=== PATIENT | male | born 1965 | race African-American/Black ===

== ENCOUNTER 2019-04-29 13:53 | Inpatient (IN) ==
[2019-04-29] MEDS ORDERED: ONDANSETRON 4 MG/2 ML VIAL IV STA (14:33)
[2019-04-29] MEDS ORDERED: cefTRIAXone 1,000 MG in SODIUM CHLORIDE 0.9% 100 ML IV STA (14:33)
[2019-04-29] MEDS ORDERED: methylPREDNISolone SOD SUC 125 MG/2 ML VIAL IV STA (14:33)
[2019-04-29] MEDS ORDERED: PIPERACILLIN/TAZOBACTAM 3,375 MG in SODIUM CHLORIDE 0.9% 100 ML IV STA (14:33)
[2019-04-29 14:34] LABS: Basophils % 0.6 % (0.0-0.8); Hematocrit 44.5 VOL% (42.0-52.0); Hemoglobin 14.6 GM/DL (14.0-18.0); Immature Granulocytes % 0.3 %; Immature Granulocytes Absolute 0.01 #; Lymphocytes # 1.1 10*3/uL (1.4-4.0); Lymphocytes % 32.2 % (21.2-54.2); Mean Corpuscular HGB Conc 32.8 GM/DL (32-36); Mean Corpuscular Volume 82.7 FL (87-102); Mean Platelet Volume 9.7 FL (9.6-12.0); Monocytes % 10.2 % (1.7-12.7); Neutrophils % 56.7 % (38.7-73.9); Platelet Count 157 T/CUMM (130-400); Red Blood Count 5.38 MC/CUMM (3.8-5.5); Red Cell Distribution Width 15.4 % (9.3-17.3); White Blood Count 3.4 T/CUMM (4-12)
[2019-04-29 14:46] LABS: INR 0.9; PT Patient Result 10.3 SECS (9.6-12.2)
[2019-04-29] MEDS ORDERED: ALBUTEROL 2.5 MG/3 ML NEB RESP TX SCH (15:00)
[2019-04-29 15:04] LABS: Lymphocytes 32 % (20-55); Platelet Estimate Adequate; Segmented Neutrophils 58 % (50-85); Total Cells Counted 100
[2019-04-29 15:05] LABS: Anisocytosis Slight; Ovalocytes Slight
[2019-04-29 15:06] LABS: Alanine Aminotransferase 82 U/L (16-61); Albumin 3.2 G/DL (3.4-5.0); Alkaline Phosphatase 54 U/L (45-117); Aspartate Amino Transferase 395 U/L (0-37); Bilirubin,Total < 0.39 MG/DL (0.2-1.0); Blood Urea Nitrogen 14 MG/DL (7-18); Calcium 8.8 MG/DL (8.5-10.1); Estimated Glom Filtration Rate 92 ML/MIN; Glucose 78 MG/DL (74-106); Osmolality,Calculated 263.5 MOS/KG (273-304); Total Protein 7.8 G/DL (6.4-8.3)
[2019-04-29] MEDS ORDERED: ACETAMINOPHEN 500 MG TABLET ONE (15:30)
[2019-04-29] MEDS ORDERED: ONDANSETRON 4 MG/2 ML VIAL IV PRN (15:41)
[2019-04-29] MEDS ORDERED: GLUCAGON 1 MG VIAL IM PRN (15:41)
[2019-04-29] MEDS ORDERED: DEXTROSE 50% 25 GM/50 ML VIAL IV PRN (15:41)
[2019-04-29] MEDS ORDERED: ACETAMINOPHEN 500 MG TABLET PO STA (15:47)
[2019-04-29] MEDS ORDERED: NICOTINE 7 MG/24 HR PATCH TRANSDERM PRN (15:58)
[2019-04-29] MEDS: INSULIN REGULAR 100 UNIT/ML SUBCUT SCH ×2 (18:07→21:58)
[2019-04-29] MEDS: ENOXAPARIN 40 MG/0.4 ML SYRINGE SUBCUT SCH (18:08)
[2019-04-29] MEDS: AZITHROMYCIN INJ 500 MG in SODIUM CHLORIDE 0.9% 250 ML IV SCH (18:12)
[2019-04-29] MEDS: ALBUTEROL/IPRATROPIUM 3 ML NEB RESP TX SCH (19:24)
[2019-04-29] MEDS: DIVALPROEX ER 500 MG TABLET PO SCH (21:58)
[2019-04-29] MEDS: BENZTROPINE 1 MG TABLET PO SCH (21:58)
[2019-04-30] MEDS: ALBUTEROL/IPRATROPIUM 3 ML NEB RESP TX SCH ×4 (00:01→18:48)
[2019-04-30 05:29] LABS: Hematocrit 42.8 VOL% (42.0-52.0); Hemoglobin 13.7 GM/DL (14.0-18.0); Immature Granulocytes % 0.3 %; Immature Granulocytes Absolute 0.01 #; Lymphocytes # 0.8 10*3/uL (1.4-4.0); Lymphocytes % 23.2 % (21.2-54.2); Mean Corpuscular Volume 83.8 FL (87-102); Mean Platelet Volume 10.8 FL (9.6-12.0); Monocytes % 7.1 % (1.7-12.7); Neutrophils % 69.4 % (38.7-73.9); Platelet Count 158 T/CUMM (130-400); Red Blood Count 5.11 MC/CUMM (3.8-5.5); Red Cell Distribution Width 15.5 % (9.3-17.3); White Blood Count 3.2 T/CUMM (4-12)
[2019-04-30 05:51] LABS: Band Neutrophils 14 % (0-10); Hypochromasia 1+; Lymphocytes 25 % (20-55); Metamyelocytes 2 %; Ovalocytes Slight; Segmented Neutrophils 52 % (50-85); Total Cells Counted 100
[2019-04-30 05:52] LABS: Calcium 8.5 MG/DL (8.5-10.1); Microcytosis Slight; Platelet Estimate Adequate
[2019-04-30 06:08] LABS: Alanine Aminotransferase 83 U/L (16-61); Albumin 3.1 G/DL (3.4-5.0); Alkaline Phosphatase 51 U/L (45-117); Aspartate Amino Transferase 365 U/L (0-37); Bilirubin,Direct < 0.100 MG/DL (0.0-0.20); Bilirubin,Indirect 0.3 MG/DL (0.0-1.0); Bilirubin,Total < 0.39 MG/DL (0.2-1.0); Total Protein 7.1 G/DL (6.4-8.3)
[2019-04-30] MEDS: CITALOPRAM 20 MG TABLET PO SCH (08:21)
[2019-04-30] MEDS: ATORVASTATIN 20 MG TABLET PO SCH (08:21)
[2019-04-30] MEDS: lisinopriL 20 MG TABLET PO SCH (08:21)
[2019-04-30] MEDS: amLODIPine 5 MG TABLET PO SCH (08:21)
[2019-04-30] MEDS: BENZTROPINE 1 MG TABLET PO SCH ×2 (08:21→21:01)
[2019-04-30] MEDS: INSULIN REGULAR 100 UNIT/ML SUBCUT SCH ×4 (08:22→20:42)
[2019-04-30] MEDS: PANTOPRAZOLE 40 MG TABLET PO SCH (08:22)
[2019-04-30] MEDS ORDERED: PANTOPRAZOLE 40 MG TABLET PO SCH (09:00)
[2019-04-30] MEDS ORDERED: HALOPERIDOL DECANOATE 100 MG IM SCH (09:00)
[2019-04-30 11:03] LABS: Hepatitis B Surface Ag Quant < 0.10 Index; Hepatitis B Surface Ag Result Negative (Negative); Hepatitis C Virus Ab Quant 0.15 Index; Hepatitis C Virus Ab Result Negative (Negative)
[2019-04-30 12:48] LABS: Apearance,Urine CLEAR (Clear); Bacteria,Urine Occasional /HPF (Few); Bilirubin,Urine Negative (Negative); Blood, Urine Negative (Negative); Glucose,Urine (UA) 50 mg/dL (Negative); Granular Casts,Urine 3 /LPF (0-1); Hyaline Casts,Urine 4 /LPF (0-3); Ketones,Urine Negative (Negative); Mucus,Urine Occasional /LPF (Occasional); Nitrite,Urine Negative (Negative); Protein,Urine Negative; RBC,Urine 2 /HPF (0-4); Squamous Epithelial Cell,Urine Occasional /HPF (0-10); Urine Color Yellow (Yellow); Urine Specific Gravity 1.018 (1.001-1.035); Urine Urobilinogen < 2.0 EU/DL (0.2-1.0); WBC,Urine <1 /HPF (0-6)
[2019-04-30] MEDS: ENOXAPARIN 40 MG/0.4 ML SYRINGE SUBCUT SCH (16:36)
[2019-04-30] MEDS: AZITHROMYCIN INJ 500 MG in SODIUM CHLORIDE 0.9% 250 ML IV SCH (16:37)
[2019-04-30] MEDS: cefTRIAXone 1,000 MG in SYRINGE 1 EACH IV SCH (16:38)
[2019-04-30] MEDS: DIVALPROEX ER 500 MG TABLET PO SCH (21:01)
[2019-05-01] MEDS: ALBUTEROL/IPRATROPIUM 3 ML NEB RESP TX SCH ×4 (01:29→19:34)
[2019-05-01] MEDS: guaiFENesin/DM ER 600-30 MG TABLET PO PRN ×2 (02:21→20:09)
[2019-05-01] MEDS ORDERED: methylPREDNISolone SOD SUC 125 MG/2 ML VIAL IV ONE (04:16)
[2019-05-01] MEDS: ACETAMINOPHEN 325 MG TABLET PO PRN ×2 (04:26→20:08)
[2019-05-01] MEDS: guaiFENesin 200 MG/10 ML UDCUP PO PRN ×2 (04:35→20:09)
[2019-05-01] MEDS: CITALOPRAM 20 MG TABLET PO SCH (08:44)
[2019-05-01] MEDS: ATORVASTATIN 20 MG TABLET PO SCH (08:44)
[2019-05-01] MEDS: amLODIPine 5 MG TABLET PO SCH (08:44)
[2019-05-01] MEDS: lisinopriL 20 MG TABLET PO SCH (08:44)
[2019-05-01] MEDS: BENZTROPINE 1 MG TABLET PO SCH ×2 (08:44→20:09)
[2019-05-01] MEDS: PANTOPRAZOLE 40 MG TABLET PO SCH (08:44)
[2019-05-01] MEDS: INSULIN REGULAR 100 UNIT/ML SUBCUT SCH ×4 (09:02→22:50)
[2019-05-01] MEDS: ENOXAPARIN 40 MG/0.4 ML SYRINGE SUBCUT SCH (16:25)
[2019-05-01] MEDS: cefTRIAXone 1,000 MG in SYRINGE 1 EACH IV SCH (16:26)
[2019-05-01] MEDS: AZITHROMYCIN INJ 500 MG in SODIUM CHLORIDE 0.9% 250 ML IV SCH (16:26)
[2019-05-01] MEDS: DIVALPROEX ER 500 MG TABLET PO SCH (20:08)
[2019-05-02] MEDS: ALBUTEROL/IPRATROPIUM 3 ML NEB RESP TX SCH ×4 (00:10→19:25)
[2019-05-02] MEDS: ACETAMINOPHEN 325 MG TABLET PO PRN ×2 (05:21→11:27)
[2019-05-02] MEDS: guaiFENesin 200 MG/10 ML UDCUP PO PRN (05:22)
[2019-05-02 05:52] LABS: Hematocrit 37.8 VOL% (42.0-52.0); Hemoglobin 12.5 GM/DL (14.0-18.0); Immature Granulocytes % 0.7 %; Immature Granulocytes Absolute 0.04 #; Lymphocytes # 1.5 10*3/uL (1.4-4.0); Lymphocytes % 24.5 % (21.2-54.2); Mean Corpuscular HGB Conc 33.1 GM/DL (32-36); Mean Corpuscular Volume 82.4 FL (87-102); Mean Platelet Volume 10.5 FL (9.6-12.0); Monocytes % 5.2 % (1.7-12.7); Neutrophils % 69.6 % (38.7-73.9); Platelet Count 137 T/CUMM (130-400); Red Blood Count 4.59 MC/CUMM (3.8-5.5); Red Cell Distribution Width 15.8 % (9.3-17.3); White Blood Count 5.9 T/CUMM (4-12)
[2019-05-02 06:12] LABS: Band Neutrophils 2 % (0-10); Hypochromasia 1+; Lymphocytes 25 % (20-55); Ovalocytes Slight; Platelet Estimate Normal; Segmented Neutrophils 66 % (50-85); Total Cells Counted 100
[2019-05-02 06:13] LABS: Microcytosis Slight
[2019-05-02] MEDS: PANTOPRAZOLE 40 MG TABLET PO SCH (08:23)
[2019-05-02] MEDS: CITALOPRAM 20 MG TABLET PO SCH (08:23)
[2019-05-02] MEDS: amLODIPine 5 MG TABLET PO SCH (08:23)
[2019-05-02] MEDS: lisinopriL 20 MG TABLET PO SCH (08:23)
[2019-05-02] MEDS: ATORVASTATIN 20 MG TABLET PO SCH (08:23)
[2019-05-02] MEDS: BENZTROPINE 1 MG TABLET PO SCH ×2 (08:23→21:28)
[2019-05-02] MEDS: INSULIN REGULAR 100 UNIT/ML SUBCUT SCH ×4 (08:50→21:29)
[2019-05-02] MEDS ORDERED: ALBUTEROL 2.5 MG/3 ML NEB RESP TX PRN (13:02)
[2019-05-02] MEDS ORDERED: HALOPERIDOL DECANOATE 50 MG/1 ML VIAL IM ONE (13:30)
[2019-05-02] MEDS: AZITHROMYCIN INJ 500 MG in SODIUM CHLORIDE 0.9% 250 ML IV SCH (15:05)
[2019-05-02] MEDS: ENOXAPARIN 40 MG/0.4 ML SYRINGE SUBCUT SCH (15:06)
[2019-05-02] MEDS: cefTRIAXone 1,000 MG in SYRINGE 1 EACH IV SCH (15:06)
[2019-05-02] MEDS ORDERED: methylPREDNISolone SOD SUC 125 MG/2 ML VIAL IV ONE (20:32)
[2019-05-02] MEDS ORDERED: methylPREDNISolone SOD SUC 125 MG/2 ML VIAL ONE (20:33)
[2019-05-02] MEDS ORDERED: FUROSEMIDE 40 MG/4 ML VIAL IV ONE (20:33)
[2019-05-02] MEDS ORDERED: ACETAMINOPHEN 500 MG TABLET PO ONE (20:35)
[2019-05-02 20:40] LABS: ABG Base Excess 2.4 MMOL/L (-2.5-2.5); ABG HCO3 26.2 MMOL/L (20-26); ABG Oxygen Saturation 84.1 % (95-100); ABG PCO2 35.5 MM HG (35-48); ABG PH 7.469 (7.35-7.45); ABG PO2 49.5 MM HG (80-95); ABG TCO2 22.5 MMOL/L (23-27); Allen Test Positive; Pt O2 Delivery Device Venturi Mask
[2019-05-02 20:53] LABS: Basophils % 0.3 % (0.0-0.8); Hematocrit 40.1 VOL% (42.0-52.0); Hemoglobin 12.9 GM/DL (14.0-18.0); Immature Granulocytes % 1.4 %; Immature Granulocytes Absolute 0.08 #; Lymphocytes # 2.2 10*3/uL (1.4-4.0); Mean Corpuscular HGB Conc 32.2 GM/DL (32-36); Mean Corpuscular Volume 83.2 FL (87-102); Mean Platelet Volume 10.6 FL (9.6-12.0); Monocytes % 5.9 % (1.7-12.7); Neutrophils % 55.4 % (38.7-73.9); Platelet Count 154 T/CUMM (130-400); Red Blood Count 4.82 MC/CUMM (3.8-5.5); Red Cell Distribution Width 15.7 % (9.3-17.3); White Blood Count 5.9 T/CUMM (4-12)
[2019-05-02] MEDS: DIVALPROEX ER 500 MG TABLET PO SCH (21:27)
[2019-05-02 21:30] LABS: Band Neutrophils 2 % (0-10); Lymphocytes 33 % (20-55); Platelet Estimate Normal; Segmented Neutrophils 58 % (50-85); Total Cells Counted 100
[2019-05-02 23:41] LABS: Pt O2 Delivery Device Other
[2019-05-02 23:42] LABS: ABG Base Excess 1.6 MMOL/L (-2.5-2.5); ABG HCO3 25.2 MMOL/L (20-26); ABG Oxygen Saturation 93.4 % (95-100); ABG PCO2 36.7 MM HG (35-48); ABG PH 7.455 (7.35-7.45); ABG PO2 69.2 MM HG (80-95); ABG TCO2 26.4 MMOL/L (23-27)
[2019-05-03] MEDS: ALBUTEROL/IPRATROPIUM 3 ML NEB RESP TX SCH ×4 (00:11→19:32)
[2019-05-03 03:37] LABS: Pt O2 Delivery Device Other
[2019-05-03 03:38] LABS: ABG Base Excess 2.3 MMOL/L (-2.5-2.5); ABG HCO3 26.3 MMOL/L (20-26); ABG Oxygen Saturation 93.8 % (95-100); ABG PCO2 39.2 MM HG (35-48); ABG PH 7.437 (7.35-7.45); ABG PO2 70.5 MM HG (80-95); ABG TCO2 22.8 MMOL/L (23-27)
[2019-05-03 04:22] LABS: Basophils % 0.7 % (0.0-0.8); Hemoglobin 13.2 GM/DL (14.0-18.0); Immature Granulocytes % 1.3 %; Immature Granulocytes Absolute 0.08 #; Lymphocytes # 1.7 10*3/uL (1.4-4.0); Lymphocytes % 27.9 % (21.2-54.2); Mean Corpuscular HGB Conc 32.2 GM/DL (32-36); Mean Corpuscular Volume 82.7 FL (87-102); Mean Platelet Volume 10.7 FL (9.6-12.0); Neutrophils % 64.1 % (38.7-73.9); Platelet Count 169 T/CUMM (130-400); Red Blood Count 4.96 MC/CUMM (3.8-5.5); Red Cell Distribution Width 15.8 % (9.3-17.3); White Blood Count 6.1 T/CUMM (4-12)
[2019-05-03 04:34] LABS: Albumin 2.8 G/DL (3.4-5.0); Bilirubin,Total 0.4 MG/DL (0.2-1.0); Calcium 8.6 MG/DL (8.5-10.1); Osmolality,Calculated 275.8 MOS/KG (273-304); Total Protein 7.8 G/DL (6.4-8.3)
[2019-05-03 04:52] LABS: Band Neutrophils 1 % (0-10); Lymphocytes 27 % (20-55); Myelocytes 1 %; Segmented Neutrophils 69 % (50-85); Total Cells Counted 100
[2019-05-03 04:53] LABS: Anisocytosis 1+; Platelet Estimate Normal; Target Cells Few
[2019-05-03 05:19] LABS: ABG Base Excess 2.1 MMOL/L (-2.5-2.5); ABG HCO3 26.2 MMOL/L (20-26); ABG PCO2 39.2 MM HG (35-48); ABG PH 7.435 (7.35-7.45); ABG PO2 92.9 MM HG (80-95); ABG TCO2 22.7 MMOL/L (23-27); Pt O2 Delivery Device Other
[2019-05-03] MEDS: INSULIN REGULAR 100 UNIT/ML SUBCUT SCH ×4 (07:13→21:15)
[2019-05-03] MEDS: amLODIPine 5 MG TABLET PO SCH (08:09)
[2019-05-03] MEDS: lisinopriL 20 MG TABLET PO SCH (08:09)
[2019-05-03] MEDS: CITALOPRAM 20 MG TABLET PO SCH (08:10)
[2019-05-03] MEDS: BENZTROPINE 1 MG TABLET PO SCH ×2 (08:10→21:38)
[2019-05-03] MEDS: PANTOPRAZOLE 40 MG TABLET PO SCH (08:10)
[2019-05-03] MEDS: ATORVASTATIN 20 MG TABLET PO SCH (08:10)
[2019-05-03 09:41] LABS: ABG HCO3 27.7 MMOL/L (20-26); ABG Oxygen Saturation 86.5 % (95-100); ABG PCO2 35.9 MM HG (35-48); ABG PH 7.488 (7.35-7.45); ABG PO2 50.9 MM HG (80-95); ABG TCO2 23.4 MMOL/L (23-27); Pt O2 Delivery Device Other
[2019-05-03] MEDS: ENOXAPARIN 40 MG/0.4 ML SYRINGE SUBCUT SCH (16:15)
[2019-05-03] MEDS: AZITHROMYCIN INJ 500 MG in SODIUM CHLORIDE 0.9% 250 ML IV SCH (16:15)
[2019-05-03] MEDS: cefTRIAXone 1,000 MG in SYRINGE 1 EACH IV SCH (16:16)
[2019-05-03] MEDS ORDERED: diphenhydrAMINE 50 MG/1 ML VIAL IV PRN (18:49)
[2019-05-03] MEDS: LORazepam 2 MG/1 ML VIAL IV PRN (19:07)
[2019-05-03] MEDS ORDERED: ETOMIDATE 20 MG/10 ML VIAL IV ONE ×2 (20:08→20:12)
[2019-05-03] MEDS ORDERED: SUCCINYLCHOLINE 200 MG/10 ML VIAL ONE (20:09)
[2019-05-03] MEDS ORDERED: SUCCINYLCHOLINE 200 MG/10 ML VIAL IV ONE (20:12)
[2019-05-03] MEDS ORDERED: VECURONIUM 10 MG VIAL IV PRN (20:35)
[2019-05-03 21:11] LABS: ABG HCO3 26.2 MMOL/L (20-26); ABG Oxygen Saturation 99.2 % (95-100); ABG PCO2 57.5 MM HG (35-48); ABG PH 7.321 (7.35-7.45); ABG TCO2 26.2 MMOL/L (23-27); Allen Test Positive; Pt O2 Delivery Device Ventilator
[2019-05-03] MEDS: DIVALPROEX ER 500 MG TABLET PO SCH (21:39)
[2019-05-03] MEDS: methylPREDNISolone SOD SUC 40 MG/1 ML VIAL IV SCH (21:39)
[2019-05-03] MEDS: fentaNYL INJ 1,250 MCG in SODIUM CHLORIDE 0.9% 225 ML IV PRN (21:40)
[2019-05-03] MEDS: METOPROLOL TARTRATE 25 MG TABLET PO SCH (21:45)
[2019-05-04] MEDS: ALBUTEROL/IPRATROPIUM 3 ML NEB RESP TX SCH ×4 (00:11→19:26)
[2019-05-04] MEDS: BUDESONIDE 0.5 MG/2 ML NEB RESP TX SCH ×3 (00:56→19:26)
[2019-05-04 03:44] LABS: ABG Base Excess 2.1 MMOL/L (-2.5-2.5); ABG HCO3 26.2 MMOL/L (20-26); ABG Oxygen Saturation 98.6 % (95-100); ABG PCO2 40.3 MM HG (35-48); ABG PH 7.427 (7.35-7.45); ABG TCO2 23.3 MMOL/L (23-27); Allen Test Positive; Pt O2 Delivery Device Ventilator
[2019-05-04 05:13] LABS: Basophils % 0.2 % (0.0-0.8); Hemoglobin 11.8 GM/DL (14.0-18.0); Immature Granulocytes % 1.3 %; Immature Granulocytes Absolute 0.12 #; Lymphocytes # 1.7 10*3/uL (1.4-4.0); Lymphocytes % 19.1 % (21.2-54.2); Mean Corpuscular HGB Conc 31.9 GM/DL (32-36); Mean Corpuscular Volume 83.7 FL (87-102); Monocytes % 6.1 % (1.7-12.7); Neutrophils % 73.3 % (38.7-73.9); Platelet Count 232 T/CUMM (130-400); Red Blood Count 4.42 MC/CUMM (3.8-5.5); Red Cell Distribution Width 15.3 % (9.3-17.3); White Blood Count 9.1 T/CUMM (4-12)
[2019-05-04 05:39] LABS: Hypochromasia Slight; Platelet Estimate Adequate
[2019-05-04 05:40] LABS: Calcium 8.1 MG/DL (8.5-10.1)
[2019-05-04] MEDS ORDERED: LORazepam 2 MG/1 ML VIAL ONE (07:18)
[2019-05-04] MEDS: methylPREDNISolone SOD SUC 40 MG/1 ML VIAL IV SCH ×2 (08:20→20:40)
[2019-05-04] MEDS: INSULIN REGULAR 100 UNIT/ML SUBCUT SCH ×4 (08:21→20:41)
[2019-05-04] MEDS: ATORVASTATIN 20 MG TABLET PO SCH (09:24)
[2019-05-04] MEDS: sitaGLIPtin 100 MG TABLET PO SCH (09:24)
[2019-05-04] MEDS: BENZTROPINE 1 MG TABLET PO SCH ×2 (09:24→20:41)
[2019-05-04] MEDS: amLODIPine 5 MG TABLET PO SCH (09:24)
[2019-05-04] MEDS: lisinopriL 20 MG TABLET PO SCH (09:24)
[2019-05-04] MEDS: CITALOPRAM 20 MG TABLET PO SCH (09:25)
[2019-05-04] MEDS: NICOTINE 14 MG/24 HR PATCH TRANSDERM SCH (09:25)
[2019-05-04] MEDS: METOPROLOL TARTRATE 25 MG TABLET PO SCH ×2 (09:25→20:41)
[2019-05-04] MEDS: OMEPRAZOLE ODT 20 MG TABLET PO SCH (09:31)
[2019-05-04] MEDS: PANTOPRAZOLE 40 MG TABLET PO SCH (10:25)
[2019-05-04] MEDS: LEVOFLOXACIN INJ 750 MG in PREMIX 1 EACH IV SCH (10:31)
[2019-05-04 11:11] LABS: Troponin I < 0.015 NG/ML (0.00-0.045)
[2019-05-04] MEDS: MEROPENEM 500 MG in SODIUM CHLORIDE 0.9% 100 ML IV SCH ×2 (12:09→17:18)
[2019-05-04] MEDS: fentaNYL INJ 1,250 MCG in SODIUM CHLORIDE 0.9% 225 ML IV PRN (12:41)
[2019-05-04] MEDS: ENOXAPARIN 40 MG/0.4 ML SYRINGE SUBCUT SCH (16:15)
[2019-05-04] MEDS: DIVALPROEX ER 500 MG TABLET PO SCH (20:41)
[2019-05-04] MEDS: VALPROIC ACID 250 MG/5 ML UDCUP NG SCH (22:01)
[2019-05-05] MEDS: ALBUTEROL/IPRATROPIUM 3 ML NEB RESP TX SCH ×4 (00:10→20:10)
[2019-05-05] MEDS: MEROPENEM 500 MG in SODIUM CHLORIDE 0.9% 100 ML IV SCH ×4 (00:14→16:46)
[2019-05-05] MEDS: VALPROIC ACID 250 MG/5 ML UDCUP NG SCH ×4 (02:20→20:42)
[2019-05-05 03:32] LABS: Basophils % 0.3 % (0.0-0.8); Hematocrit 36.7 VOL% (42.0-52.0); Hemoglobin 11.8 GM/DL (14.0-18.0); Immature Granulocytes % 2.3 %; Immature Granulocytes Absolute 0.21 #; Lymphocytes # 0.9 10*3/uL (1.4-4.0); Lymphocytes % 9.5 % (21.2-54.2); Mean Corpuscular HGB Conc 32.2 GM/DL (32-36); Mean Corpuscular Volume 83.2 FL (87-102); Mean Platelet Volume 11.5 FL (9.6-12.0); Monocytes % 7.2 % (1.7-12.7); NRBC # 0.02 10*3/uL; Neutrophils % 80.7 % (38.7-73.9); Platelet Count 313 T/CUMM (130-400); Red Blood Count 4.41 MC/CUMM (3.8-5.5); Red Cell Distribution Width 15.5 % (9.3-17.3); White Blood Count 9.3 T/CUMM (4-12)
[2019-05-05 03:38] LABS: Allen Test Positive; Pt O2 Delivery Device Ventilator
[2019-05-05 03:39] LABS: ABG Base Excess 4.1 MMOL/L (-2.5-2.5); ABG HCO3 28.1 MMOL/L (20-26); ABG Oxygen Saturation 98.4 % (95-100); ABG PCO2 41.9 MM HG (35-48); ABG PH 7.443 (7.35-7.45); ABG TCO2 25.2 MMOL/L (23-27)
[2019-05-05 03:56] LABS: Albumin 2.5 G/DL (3.4-5.0); Bilirubin,Total 0.7 MG/DL (0.2-1.0); Calcium 8.2 MG/DL (8.5-10.1); Osmolality,Calculated 284.8 MOS/KG (273-304); Total Protein 6.9 G/DL (6.4-8.3)
[2019-05-05 04:55] LABS: Band Neutrophils 3 % (0-10); Hypochromasia 1+; Lymphocytes 5 % (20-55); Ovalocytes Slight; Platelet Estimate Adequate; Segmented Neutrophils 84 % (50-85); Total Cells Counted 100
[2019-05-05 05:06] VITALS: BP 105/65
[2019-05-05] MEDS: BUDESONIDE 0.5 MG/2 ML NEB RESP TX SCH ×2 (07:17→20:10)
[2019-05-05] MEDS: INSULIN REGULAR 100 UNIT/ML SUBCUT SCH ×4 (07:22→20:42)
[2019-05-05] MEDS: methylPREDNISolone SOD SUC 40 MG/1 ML VIAL IV SCH ×2 (07:22→20:43)
[2019-05-05] MEDS: NICOTINE 14 MG/24 HR PATCH TRANSDERM SCH (08:16)
[2019-05-05] MEDS: METOPROLOL TARTRATE 25 MG TABLET PO SCH ×2 (08:17→20:42)
[2019-05-05] MEDS: BENZTROPINE 1 MG TABLET PO SCH ×2 (08:17→20:42)
[2019-05-05] MEDS: amLODIPine 5 MG TABLET PO SCH (08:18)
[2019-05-05] MEDS: ATORVASTATIN 20 MG TABLET PO SCH (08:18)
[2019-05-05] MEDS: CITALOPRAM 20 MG TABLET PO SCH (08:18)
[2019-05-05] MEDS: sitaGLIPtin 100 MG TABLET PO SCH (08:18)
[2019-05-05] MEDS: OMEPRAZOLE ODT 20 MG TABLET PO SCH (08:18)
[2019-05-05] MEDS: lisinopriL 20 MG TABLET PO SCH (08:18)
[2019-05-05] MEDS: LEVOFLOXACIN INJ 750 MG in PREMIX 1 EACH IV SCH (09:47)
[2019-05-05] MEDS ORDERED: LORazepam 2 MG/1 ML VIAL ONE ×2 (11:49→12:02)
[2019-05-05] MEDS: LORazepam 2 MG/1 ML VIAL IV PRN (11:52)
[2019-05-05] MEDS ORDERED: LORazepam 2 MG/1 ML VIAL IV ONE (12:00)
[2019-05-05] MEDS ORDERED: MORPHINE 4 MG/1 ML VIAL ONE (12:11)
[2019-05-05] MEDS ORDERED: MORPHINE 4 MG/1 ML VIAL IV PRN (12:21)
[2019-05-05] MEDS: ENOXAPARIN 40 MG/0.4 ML SYRINGE SUBCUT SCH (16:20)
[2019-05-06] MEDS: ALBUTEROL/IPRATROPIUM 3 ML NEB RESP TX SCH ×4 (00:58→20:30)
[2019-05-06] MEDS: MEROPENEM 500 MG in SODIUM CHLORIDE 0.9% 100 ML IV SCH ×5 (01:25→23:46)
[2019-05-06] MEDS: VALPROIC ACID 250 MG/5 ML UDCUP NG SCH ×4 (02:54→21:09)
[2019-05-06 03:57] LABS: ABG Base Excess 3.5 MMOL/L (-2.5-2.5); ABG HCO3 27.5 MMOL/L (20-26); ABG Oxygen Saturation 94.6 % (95-100); ABG PCO2 51.2 MM HG (35-48); ABG PH 7.374 (7.35-7.45); ABG PO2 79.7 MM HG (80-95); ABG TCO2 26.4 MMOL/L (23-27); Allen Test Positive; Pt O2 Delivery Device Ventilator
[2019-05-06 04:39] LABS: Basophils % 0.5 % (0.0-0.8); Hematocrit 37.6 VOL% (42.0-52.0); Hemoglobin 11.9 GM/DL (14.0-18.0); Immature Granulocytes Absolute 0.48 #; Lymphocytes % 12.7 % (21.2-54.2); Mean Corpuscular HGB Conc 31.6 GM/DL (32-36); Mean Corpuscular Volume 85.1 FL (87-102); Mean Platelet Volume 10.4 FL (9.6-12.0); Monocytes % 9.6 % (1.7-12.7); NRBC # 0.02 10*3/uL; Neutrophils % 71.2 % (38.7-73.9); Platelet Count 397 T/CUMM (130-400); Red Blood Count 4.42 MC/CUMM (3.8-5.5); Red Cell Distribution Width 15.7 % (9.3-17.3)
[2019-05-06 05:03] LABS: Lymphocytes 9 % (20-55); Platelet Estimate Adequate; Segmented Neutrophils 77 % (50-85); Total Cells Counted 100
[2019-05-06 05:04] LABS: Hypochromasia 1+; Ovalocytes Slight
[2019-05-06 05:11] LABS: Calcium 8.1 MG/DL (8.5-10.1); Osmolality,Calculated 287.3 MOS/KG (273-304)
[2019-05-06] MEDS: BUDESONIDE 0.5 MG/2 ML NEB RESP TX SCH ×2 (07:10→20:30)
[2019-05-06] MEDS: INSULIN REGULAR 100 UNIT/ML SUBCUT SCH ×4 (08:32→22:00)
[2019-05-06] MEDS: methylPREDNISolone SOD SUC 40 MG/1 ML VIAL IV SCH ×2 (09:13→21:08)
[2019-05-06] MEDS: NICOTINE 14 MG/24 HR PATCH TRANSDERM SCH (09:13)
[2019-05-06] MEDS: METOPROLOL TARTRATE 25 MG TABLET PO SCH ×2 (09:14→21:09)
[2019-05-06] MEDS: lisinopriL 20 MG TABLET PO SCH (09:14)
[2019-05-06] MEDS: CITALOPRAM 20 MG TABLET PO SCH (09:14)
[2019-05-06] MEDS: OMEPRAZOLE ODT 20 MG TABLET PO SCH (09:15)
[2019-05-06] MEDS: BENZTROPINE 1 MG TABLET PO SCH ×2 (09:15→21:09)
[2019-05-06] MEDS: sitaGLIPtin 100 MG TABLET PO SCH (09:15)
[2019-05-06] MEDS: ATORVASTATIN 20 MG TABLET PO SCH (09:15)
[2019-05-06] MEDS: amLODIPine 5 MG TABLET PO SCH (09:15)
[2019-05-06] MEDS: LEVOFLOXACIN INJ 750 MG in PREMIX 1 EACH IV SCH (11:15)
[2019-05-06] MEDS: ENOXAPARIN 40 MG/0.4 ML SYRINGE SUBCUT SCH (18:13)
[2019-05-06] MEDS: fentaNYL INJ 1,250 MCG in SODIUM CHLORIDE 0.9% 225 ML IV PRN (23:41)
[2019-05-07] MEDS: ALBUTEROL/IPRATROPIUM 3 ML NEB RESP TX SCH ×3 (00:57→12:22)
[2019-05-07] MEDS: VALPROIC ACID 250 MG/5 ML UDCUP NG SCH ×2 (03:19→10:13)
[2019-05-07 04:33] LABS: Basophils % 0.4 % (0.0-0.8); Eosinophils % 0.1 % (0.00-10.9); Hemoglobin 12.2 GM/DL (14.0-18.0); Immature Granulocytes % 11.4 %; Immature Granulocytes Absolute 0.95 #; Lymphocytes % 12.3 % (21.2-54.2); Mean Corpuscular HGB Conc 30.5 GM/DL (32-36); Mean Corpuscular Volume 87.9 FL (87-102); Mean Platelet Volume 10.4 FL (9.6-12.0); Monocytes % 9.3 % (1.7-12.7); Neutrophils % 66.5 % (38.7-73.9); Platelet Count 444 T/CUMM (130-400); Red Blood Count 4.55 MC/CUMM (3.8-5.5); Red Cell Distribution Width 15.9 % (9.3-17.3); White Blood Count 8.4 T/CUMM (4-12)
[2019-05-07 04:52] LABS: ABG Base Excess 1.4 MMOL/L (-2.5-2.5); ABG HCO3 25.7 MMOL/L (20-26); ABG Oxygen Saturation 97.6 % (95-100); ABG PCO2 60.5 MM HG (35-48); ABG PH 7.297 (7.35-7.45); ABG TCO2 26.4 MMOL/L (23-27); Allen Test Positive; Pt O2 Delivery Device Ventilator
[2019-05-07 04:56] LABS: Albumin 2.7 G/DL (3.4-5.0); Bilirubin,Total 0.9 MG/DL (0.2-1.0); Calcium 8.2 MG/DL (8.5-10.1); Osmolality,Calculated 289.5 MOS/KG (273-304)
[2019-05-07 04:59] LABS: Prealbumin 30.9 MG/DL (20-40)
[2019-05-07 05:20] LABS: Band Neutrophils 1 % (0-10); Hypochromasia 1+; Lymphocytes 12 % (20-55); Platelet Estimate Adequate; Segmented Neutrophils 74 % (50-85); Total Cells Counted 100
[2019-05-07] MEDS: MEROPENEM 500 MG in SODIUM CHLORIDE 0.9% 100 ML IV SCH ×2 (05:48→12:01)
[2019-05-07] MEDS: BUDESONIDE 0.5 MG/2 ML NEB RESP TX SCH (07:53)
[2019-05-07] MEDS: INSULIN REGULAR 100 UNIT/ML SUBCUT SCH ×2 (10:11→11:42)
[2019-05-07] MEDS: NICOTINE 14 MG/24 HR PATCH TRANSDERM SCH (10:11)
[2019-05-07] MEDS: methylPREDNISolone SOD SUC 40 MG/1 ML VIAL IV SCH (10:11)
[2019-05-07] MEDS: CITALOPRAM 20 MG TABLET PO SCH (10:12)
[2019-05-07] MEDS: METOPROLOL TARTRATE 25 MG TABLET PO SCH (10:12)
[2019-05-07] MEDS: amLODIPine 5 MG TABLET PO SCH (10:12)
[2019-05-07] MEDS: OMEPRAZOLE ODT 20 MG TABLET PO SCH (10:12)
[2019-05-07] MEDS: BENZTROPINE 1 MG TABLET PO SCH (10:12)
[2019-05-07] MEDS: ATORVASTATIN 20 MG TABLET PO SCH (10:12)
[2019-05-07] MEDS: lisinopriL 20 MG TABLET PO SCH (10:12)
[2019-05-07] MEDS: sitaGLIPtin 100 MG TABLET PO SCH (10:12)
[2019-05-07] MEDS: LEVOFLOXACIN INJ 750 MG in PREMIX 1 EACH IV SCH (10:13)
[2019-05-07] MEDS: fentaNYL INJ 1,250 MCG in SODIUM CHLORIDE 0.9% 225 ML IV PRN (15:07)
== END 2019-05-07 15:15 | DRG 208 ==
LOC: N.ED 13:53 → N.EDINP 15:41 → SUPCPDRO 15:41 → SUATTDRO 15:41 → N.5E 16:39 → N.CC 05-02 21:04
PROVIDERS: ADMIT Internal Medicine Geriatric Medicine; ATTEND Internal Medicine

== ENCOUNTER 2020-10-02 20:08 | Inpatient (IN) ==
[2020-10-02] MEDS ORDERED: SODIUM CHLORIDE 0.9% 1,000 ML IV STA (21:12)
[2020-10-02] MEDS ORDERED: INSULIN REGULAR 100 UNIT/ML IV STA (21:37)
[2020-10-02 21:44] LABS: Basophils % 0.4 % (0.0-0.8); Hematocrit 42.6 VOL% (42.0-52.0); Hemoglobin 18.4 GM/DL (14.0-18.0); Immature Granulocytes % 0.6 %; Immature Granulocytes Absolute 0.03 #; Lymphocytes # 2.1 10*3/uL (1.4-4.0); Lymphocytes % 39.4 % (21.2-54.2); Mean Corpuscular HGB Conc 43.2 GM/DL (32-36); Mean Corpuscular Volume 81.1 FL (87-102); Mean Platelet Volume 10.7 FL (9.6-12.0); Monocytes % 13.1 % (1.7-12.7); Neutrophils % 46.5 % (38.7-73.9); Platelet Count 247 T/CUMM (130-400); Red Blood Count 5.25 MC/CUMM (3.8-5.5); Red Cell Distribution Width 13.2 % (9.3-17.3); White Blood Count 5.4 T/CUMM (4-12)
[2020-10-02 21:46] LABS: ABG Base Excess -7.1 MMOL/L (-2.5-2.5); ABG HCO3 18.7 MMOL/L (20-26); ABG Oxygen Saturation 95.8 % (95-100); ABG PH 7.317 (7.35-7.45); ABG PO2 81.8 MM HG (80-95); ABG TCO2 15.9 MMOL/L (23-27)
[2020-10-02 21:55] LABS: Lymphocytes 47 % (20-55); Segmented Neutrophils 46 % (50-85); Total Cells Counted 100
[2020-10-02 21:56] LABS: Reactive Lymphocytes 1+
[2020-10-02] MEDS ORDERED: INSULIN REGULAR DRIP 100 ML IV PRN (21:58)
[2020-10-02 22:38] LABS: Bilirubin,Total 2.2 MG/DL (0.20-1.00); Calcium 9.6 MG/DL (8.5-10.1); Total Protein 8.2 G/DL (6.4-8.2)
[2020-10-02 22:39] LABS: Osmolality,Calculated 281.6 MOS/KG (273-304); Potassium 5.8 MMOL/L (3.5-5.1)
[2020-10-02 22:46] LABS: Bilirubin,Urine Negative (Negative); Blood, Urine Negative (Negative); Glucose,Urine (UA) >=500 mg/dL (Negative); Ketones,Urine 80 mg/dL (Negative); Nitrite,Urine Negative (Negative); Protein,Urine Negative; RBC,Urine 1 /HPF (0-4); Urine Appearance CLEAR (Clear); Urine Color Colorless (Yellow); Urine Specific Gravity 1.024 (1.001-1.035); Urine Urobilinogen < 2.0 EU/DL (0.2-1.0)
[2020-10-02] MEDS ORDERED: SODIUM CHLORIDE 0.9% 1,000 ML IV ONE (23:51)
[2020-10-02] MEDS ORDERED: GLUCAGON 1 MG VIAL IM PRN (23:51)
[2020-10-02] MEDS ORDERED: SODIUM BICARB INJ 100 MEQ in STERILE WATER INJ 400 ML IV PRN (23:51)
[2020-10-02] MEDS ORDERED: MAGNESIUM SULF RIDER 4 GM/100 ML PREMIX IV PRN (23:51)
[2020-10-02] MEDS ORDERED: MAGNESIUM SULF RIDER 2 GM/50 ML PREMIX IV PRN (23:51)
[2020-10-02] MEDS ORDERED: DEXTROSE 50% 25 GM/50 ML VIAL IV PRN ×2 (23:51)
[2020-10-02] MEDS ORDERED: POTASSIUM CHLORIDE RIDER 10 MEQ/100 ML PREMIX IV PRN (23:51)
[2020-10-03 00:59] LABS: Osmolality,Calculated 279.7 MOS/KG (273-304); Potassium 4.4 MMOL/L (3.5-5.1)
[2020-10-03] MEDS ORDERED: SODIUM CHLORIDE 0.9% 1,000 ML IV SCH (01:00)
[2020-10-03 01:01] LABS: Calcium 9.5 MG/DL (8.5-10.1)
[2020-10-03] MEDS: INSULIN REGULAR 100 UNIT/ML SUBCUT SCH ×7 (02:36→21:15)
[2020-10-03] MEDS: SODIUM CHLORIDE 0.9% 1,000 ML IV SCH ×2 (02:58→06:46)
[2020-10-03 03:52] LABS: ABG Base Excess -10.4 MMOL/L (-2.5-2.5); ABG HCO3 15.7 MMOL/L (20-26); ABG PCO2 35.4 MM HG (35-48); ABG PH 7.264 (7.35-7.45); ABG PO2 83.4 MM HG (80-95); ABG TCO2 16.8 MMOL/L (23-27)
[2020-10-03 05:11] LABS: Osmolality,Calculated 269.9 MOS/KG (273-304); Potassium 5.7 MMOL/L (3.5-5.1)
[2020-10-03 05:20] LABS: Basophils % 0.3 % (0.0-0.8); Eosinophils % 0.1 % (0.00-10.9); Hematocrit 40.1 VOL% (42.0-52.0); Immature Granulocytes % 0.3 %; Immature Granulocytes Absolute 0.02 #; Lymphocytes # 3.7 10*3/uL (1.4-4.0); Lymphocytes % 52.7 % (21.2-54.2); Mean Corpuscular HGB Conc 42.4 GM/DL (32-36); Mean Corpuscular Volume 82.3 FL (87-102); Mean Platelet Volume 11.9 FL (9.6-12.0); Monocytes % 9.3 % (1.7-12.7); Neutrophils % 37.3 % (38.7-73.9); Platelet Count 267 T/CUMM (130-400); Red Blood Count 4.87 MC/CUMM (3.8-5.5); Red Cell Distribution Width 14.1 % (9.3-17.3); White Blood Count 7.1 T/CUMM (4-12)
[2020-10-03 05:25] LABS: Eosinophils 1 % (0-10); Hypochromasia 1+; Lymphocytes 57 % (20-55); Segmented Neutrophils 32 % (50-85); Total Cells Counted 100
[2020-10-03 05:26] LABS: Microcytosis 1+; Platelet Estimate Normal
[2020-10-03 05:37] LABS: Calcium 8.2 MG/DL (8.5-10.1)
[2020-10-03 07:18] LABS: Calcium 7.7 MG/DL (8.5-10.1); Potassium 4.8 MMOL/L (3.5-5.1)
[2020-10-03] MEDS ORDERED: LACTATED RINGERS 1,000 ML IV ONE (08:06)
[2020-10-03] MEDS ORDERED: traZODone 50 MG TABLET PO PRN (08:11)
[2020-10-03] MEDS: ATORVASTATIN 20 MG TABLET PO SCH (08:51)
[2020-10-03] MEDS: LACTATED RINGERS 1,000 ML IV SCH ×3 (09:54→23:51)
[2020-10-03] MEDS ORDERED: INSULIN REGULAR 100 UNIT/ML SUBCUT SCH (10:00)
[2020-10-03] MEDS: NON-FORMULARY MEDICATION (Empagliflozin [Jardiance] 10 mg Tablet) PO SCH (10:01)
[2020-10-03 16:36] LABS: Calcium 6.2 MG/DL (8.5-10.1); Osmolality,Calculated 286.8 MOS/KG (273-304); Potassium 4.3 MMOL/L (3.5-5.1)
[2020-10-03] MEDS ORDERED: SODIUM CHLORIDE 0.45% 1,000 ML IV SCH (17:00)
[2020-10-03] MEDS ORDERED: DIVALPROEX ER 500 MG TABLET PO SCH (21:00)
[2020-10-03] MEDS ORDERED: CITALOPRAM 20 MG TABLET PO SCH (21:00)
[2020-10-04] MEDS: INSULIN REGULAR 100 UNIT/ML SUBCUT SCH ×4 (01:45→12:16)
[2020-10-04 06:09] LABS: Calcium 8.3 MG/DL (8.5-10.1); Osmolality,Calculated 276.5 MOS/KG (273-304); Potassium 3.3 MMOL/L (3.5-5.1)
[2020-10-04] MEDS: LACTATED RINGERS 1,000 ML IV SCH ×2 (06:29→12:44)
[2020-10-04] MEDS: NON-FORMULARY MEDICATION (Empagliflozin [Jardiance] 10 mg Tablet) PO SCH (08:53)
[2020-10-04] MEDS: ATORVASTATIN 20 MG TABLET PO SCH (08:53)
[2020-10-04] MEDS: POTASSIUM CHLORIDE 20 MEQ TABLET PO PRN ×2 (08:53→12:17)
[2020-10-04 11:51] VITALS: BP 133/64
== END 2020-10-04 13:50 | disposition home or self-care (01) | DRG 638 ==
LOC: N.ED 20:08 → SUATTDRO 23:51 → N.EDINP 23:51 → N.ICU 10-03 00:18 → N.4E 10-03 13:01
PROVIDERS: ADMIT Internal Medicine; ATTEND Emergency Medicine